=== PATIENT | female | born 1980 | race Two or more races ===

== ENCOUNTER 2021-05-10 13:18 | Emergency (ER) | payer OTHER ==
[~2021-05-10] VITALS: Ht 160 cm; Wt 62.6 kg
[2021-05-10] MEDS ORDERED: NORFLEX100MG PO (19:12)
[2021-05-10] MEDS ORDERED: ZITHROMAX500 MG PO (19:12)
[2021-05-10] MEDS ORDERED: IPRAT-ALBUT 0.5-3 ML IH (19:13)
== END 2021-05-10 19:27 | disposition home or self-care (01) ==
LOC: ER 13:18
DX: B34.9 Viral infection, unspecified (principal); J40 Bronchitis, not specified as acute or chronic; Z03.818 Encounter for observation for suspected exposure to other biological agents ruled out

== ENCOUNTER 2021-10-12 15:50 | Emergency (ER) | payer OTHER ==
[~2021-10-12] VITALS: Ht 167.6 cm; Wt 63.5 kg
[~2021-10-12 15:50] MED LIST: IPRAT-ALBUT 0.5-3 ML IH; NORFLEX100MG PO; ZITHROMAX500 MG PO
== END 2021-10-12 19:57 | disposition home or self-care (01) ==
LOC: ER 15:50
DX: M62.838 Other muscle spasm (principal); R07.9 Chest pain, unspecified